=== PATIENT | female | born 2000 | race Two or more races ===

== ENCOUNTER 2025-04-07 04:50 | Emergency (ER) | payer MEDICAID, SELFPAY ==
[2025-04-07 04:51] VITALS: BMI 37.4
[2025-04-07 04:53] VITALS: BP 127/76; PULSE 103; RESP 19; TEMP 37; O2SAT 96
[2025-04-07] MEDS: AMOXICILLIN/POT CLAV 875 TABLET 1 TAB PO (05:19)
[2025-04-07] MEDS: DEXAMETHASONE SOD PHOS INJ 10 MG/ML VIAL PO (05:19)
[2025-04-07 05:34] VITALS: RESP 16
--- NOTE | 2025-04-07 05:53 | PD.EDURI ---
Upper Respiratory Inf. RME/HPI General Chief Complaint: Dental/Oral/Throat Stated Complaint: TONSILS ARE SWOLLEN Time Seen by Provider: 04/07/25 05:06 Arrival date/time: 04/07/25 04:50 24F with no significant pMH presents to ED with several days of sore throat and swelling. Patient has been dealing with recurrent infections for the past 5 years. PCP won't do anything about it. Limitations: no limitations Related Data Previous Rx's ?Medication ?Instructions ?Recorded amoxicillin 875 mg-potassium 1 tab PO BID 10 days #20 tabs 04/07/25 clavulanate 125 mg tablet Allergies Allergy/AdvReac Type Severity Reaction Status Date / Time No Known Allergies Allergy Verified 04/07/25 04:51 Review of Systems Review of Systems Systems Reviewed: All systems reviewed, normal except as documented Constitutional Constitutional: Reports system reviewed and no additional complaints, except as documented, Denies fever(s) and Denies headache(s) ENT Ears, Nose, Mouth, and Throat: Reports as per HPI, Denies disequilibrium, Denies headache(s), Reports sore throat and Reports throat swelling Cardiovascular Cardiovascular: Reports system reviewed and no additional complaints, except as documented, Denies chest pain and Denies dyspnea Respiratory Respiratory: Reports system reviewed and no additional complaints, except as documented, Denies cough and Denies dyspnea Gastrointestinal Gastrointestinal: Reports system reviewed and no additional complaints, except as documented, Denies abdominal pain, Denies nausea and Denies vomiting Neurologic Neurologic: Reports system reviewed and no additional complaints, except as documented, Denies confusion, Denies disequilibrium and Denies headache(s) Psychiatric Psychiatric: Denies confusion Allergic/Immunologic Allergic/Immunologic: Reports throat swelling Past Medical History Social History SMOKING STATUS: Never smoker ED Exam General Limitations: Present no limitations General appearance: Present alert and in no apparent distress Head Head exam: Present atraumatic Eye Eye exam: Present normal appearance, PERRL and EOMI ENT ENT exam: Present mucous membranes moist Expanded ENT Exam Throat exam: Present tonsillar erythema and tonsillomegaly; Absent tonsillar exudate, R peritonsillar mass, L peritonsillar mass or muffled voice Neck Neck exam: Present normal inspection, full ROM and trachea midline Chest Chest inspection: Present normal inspection and symmetric chest wall rise Respiratory Respiratory exam: Present normal lung sounds bilaterally Cardiovascular Cardiovascular exam: Present regular rate, normal rhythm and normal heart sounds Abdominal Exam Abdominal exam: Present soft and normal bowel sounds Extremities Exam Extremities exam: Present normal inspection and full ROM Back Exam Back exam: Present normal inspection and full ROM Neurological Exam Neurological exam: Present alert, oriented X3 and CN II-XII intact Psychiatric Psychiatric exam: Present normal affect and normal mood Skin Skin exam: Present warm, dry, intact and normal color Course Quality Measures none Orders Category Date Time Status Amoxicillin/Pot Clav 875 [Augmentin 875] Med 04/07/25 05:04 Discontinued 1 tab PO X1 ONE Dexamethasone Inj [Decadron Inj] Med 04/07/25 05:04 Discontinued 10 mg PO X1 ONE Vital Signs Vital signs: Vital Signs Temperature 98.6 F 04/07/25 04:53 Pulse Rate 103 H 04/07/25 04:53 Respiratory Rate 19 04/07/25 04:53 Blood Pressure 127/76 04/07/25 04:53 Pulse Oximetry (%) 96 04/07/25 04:53 Oxygen Delivery Method Room Air 04/07/25 04:53 O2 at 96% on RA and WNLs Upper Respiratory Infection MDM Narrative MDM Narrative:: 24F with no significant pMH presents to ED with several days of sore throat and swelling. Patient has been dealing with recurrent infections for the past 5 years. PCP won't do anything about it. Physical exam reveals red and swollen oropharynx. Patient is afebrile, calm, and alert. Meds and travel counselor automobile [employer] given. Patient data External records reviewed:: [facility] previous records Clinical information provided by:: patient Social determinants that could affect healthcare access:: none Patient has the following chronic illnesses:: none How is presenting disease/condition affected by chronic disease/condition?: no chronic disease Evaluation data The following diagnostics were reviewed and interpreted by me:: other (specify) (none) Lab and/or radiology exams considered but not ordered:: not ordered Interpretation Summary: n/a Medications / Prescriptions Medications or Prescriptions considered but not ordered:: ordered Medication administrations:: Medication Administration History Discontinued Medications Amoxicillin/Clavulanate Potassium (Amoxicillin/Pot Clav 875 Tablet) 1 tab PO X1 ONE Stop: 04/07/25 05:05 Last Admin: 04/07/25 05:19 Dose: 1 tab Documented By: CVL Dexamethasone Sodium Phosphate (Dexamethasone Sod Phos Inj 10 Mg/Ml Vial) 10 mg PO X1 ONE Stop: 04/07/25 05:05 Last Admin: 04/07/25 05:19 Dose: 10 mg Documented By: CVL above Consultations Consultation(s) initiated? (list below): No Diagnosis Upper Respiratory Differential Diagnosis: upper respiratory infection, croup, otitis media, sinusitis, viral infection, bronchitis, influenza and pharyngitis Most likely diagnosis given after review of the tests above:: tonsillitis Admission Indicated Admission indicated?: not indicated Admission Request Was there a request for admission?: No Disposition Plan Disposition Plan: Discharge Discharge Attestation Discharge Attestation: The patient and all family members were given an opportunity to ask questions and understood the discharge instructions. Discharge instructions specifically effects, indications for sooner follow up or return to the emergency department, and the expected course of current diagnosis. Patient condition: Stable Discharge Plan Plan Patient Disposition: HOME (Self Care) Discharge Disposition comment: Stable Prescriptions/Referrals Prescriptions/Med Rec: New amoxicillin-pot clavulanate 875-125 mg tablet 1 tab PO BID 10 Days Qty: 20 0RF Problem List Clinical Impression: Tonsillitis Patient/Caregiver Discharge Instructions Education Materials: Tonsillitis in Adults Additional Instructions: Please follow-up with PCP within 24-48 hours and return immediately if symptoms worsen. Need to see PCP for ENT referral for elective outpatient tonsillectomy/adenoidectomy. Print Language: Irish Stand Alone Forms: Patient Portal Info Letter LIA/JUDITH Supervising Physician LIA/JUDITH Supervising Physician: Dr. Fernando
== END 2025-04-07 05:34 | disposition home or self-care (01) ==
LOC: SERX 05:51
PROVIDERS: Emergency Provider Emergency Medicine; PCP Nurse Practitioner Family
DX: J03.90 Acute tonsillitis, unspecified (principal)
CPT/HCPCS: 99282; J1100; A9270

== ENCOUNTER → 2025-04-12 | Outpatient (CLI) | payer MEDICAID, SELFPAY ==
--- NOTE | 2025-04-12 15:49 | XR_ITS ---
Examination: Ultrasound soft tissue neck TECHNIQUE: Gomes scale sonographic images soft tissue neck Date and time: April 12, 2025 1609 hours INDICATIONS: Palpable lump in the mid neck node as beginning one week ago FINDINGS: Multiple lymph nodes in the left neck, the largest 18 x 5 x 10 mm IMPRESSION: Recommend CT soft tissue neck post intravenous contrast follow-up to assess multiple lymph nodes in the left neck
--- NOTE | 2025-04-12 16:35 | XR_ITS ---
Examination: PA lateral chest 2 views TECHNIQUE: Upright PA and lateral chest 2 views Date and time: April 12, 2025 at 1656 hours INDICATIONS: Coughing beginning 4 days ago. FINDINGS: Normal heart size. Lungs are clear. The osseous structures are intact IMPRESSION: No active disease
== END | disposition home or self-care (01) ==
PROVIDERS: PCP Nurse Practitioner Family; Referring Provider Nurse Practitioner Family; Visit Provider Nurse Practitioner Family
DX: R05.3 Chronic cough (principal); R59.0 Localized enlarged lymph nodes
CPT/HCPCS: 71046; 76536

== ENCOUNTER → 2025-04-26 | Outpatient (CLI) | payer MEDICAID, SELFPAY ==
--- NOTE | 2025-04-26 15:13 | XR_ITS ---
Examination: CT soft tissue neck, with intravenous contrast. 2-D coronal reconstructions. 2-D sagittal reconstructions. Date and time of exam :April 26, 2025 1612 hours Comparison ultrasound soft tissue neck April 12, 2025 INDICATIONS: Palpable lumps in the neck beginning 2 weeks ago. CTDI: vol (mGy):17.5 DLP: (mGycm):470 Technique: 1.25 mm axial sections of the neck of the obtained. Coronal and sagittal reconstructions have been obtained. Intravenous contrast administered Isovue 370. 50 cc Low dose protocols were performed. One or more of the following dose reduction techniques were used; automated exposure control, adjustment of the mA and/or KV according to patient size, use of iterative reconstruction technique. Findings: 10 mm retention cyst left maxillary antrum Ventricle nasopharynx oropharynx Bilateral carotid triangle lymph nodes, the largest on the right side 18 mm, the largest on the left side 17 mm Bilateral submental lymph nodes, the largest on the right side 10 mm Posterior cervical lymph nodes, the largest on the right side 10 mm The larynx appears normal No thyroid nodules Normal epiglottis IMPRESSION: Cervical lymphadenopathy as above Suggest 3 month follow-up ultrasound soft tissue neck
[2025-04-26 15:56] LABS: HCG Qualitative,Urine Negative
== END | disposition home or self-care (01) ==
PROVIDERS: PCP Nurse Practitioner Family; Referring Provider Radiology Diagnostic Radiology; Visit Provider Nurse Practitioner Family
DX: R59.0 Localized enlarged lymph nodes (principal); Z32.00 Encounter for pregnancy test, result unknown
CPT/HCPCS: 70491; 81025; A4649; Q9967

== ENCOUNTER → 2025-08-29 | Outpatient (CLI) | payer MEDICAID, SELFPAY ==
--- NOTE | 2025-08-29 15:30 | XR_ITS ---
EXAMINATION: Ultrasound soft tissue neck TECHNIQUE: Grayscale sonographic images soft tissue neck Date and time: August 29, 2025, 1548 hours, comparison April 12, 2025 INDICATIONS: History of recurrent tonsillitis and bilateral neck pain beginning 3 months ago FINDINGS: Enlarged lymph nodes right side of the neck, the largest 2.7 x 1.4 cm Enlarged lymph nodes left side of the neck, the largest 2.2 x 1.4 cm IMPRESSION: Bilateral enlarged lymph nodes in the neck, consider correlation with repeat CT soft tissue neck post intravenous contrast
== END | disposition home or self-care (01) ==
PROVIDERS: PCP Nurse Practitioner Family; Referring Provider Nurse Practitioner Family; Visit Provider Nurse Practitioner Family
DX: R59.0 Localized enlarged lymph nodes (principal)
CPT/HCPCS: 76536

== ENCOUNTER → 2025-10-10 | Outpatient (CLI) | payer MEDICAID, SELFPAY ==
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
== END | disposition home or self-care (01) ==
LOC: CDIM 10:37
PROVIDERS: PCP Nurse Practitioner Family; Referring Provider Nurse Practitioner Family; Visit Provider Nurse Practitioner Family
DX: S29.9XXA Unspecified injury of thorax, initial encounter (principal); S89.92XA Unspecified injury of left lower leg, initial encounter; V89.2XXA Person injured in unspecified motor-vehicle accident, traffic, initial encounter
CPT/HCPCS: 71111; 73560

== ENCOUNTER → 2025-10-25 | Outpatient (CLI) | payer MEDICAID, SELFPAY ==
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
== END | disposition home or self-care (01) ==
PROVIDERS: PCP Nurse Practitioner Family; Referring Provider Nurse Practitioner Family; Visit Provider Nurse Practitioner Family
DX: N63.13 Unspecified lump in the right breast, lower outer quadrant (principal); S29.9XXA Unspecified injury of thorax, initial encounter; V89.2XXA Person injured in unspecified motor-vehicle accident, traffic, initial encounter
CPT/HCPCS: 76641